=== PATIENT | female | born 1950 | race Caucasian/White ===

== ENCOUNTER 2018-01-15 12:56 | Emergency (ER) | payer OTHER ==
[~2018-01-15] VITALS: Ht 157.5 cm; Wt 100.0 kg
[2018-01-15] MEDS ORDERED: TYLENOL WITH C1 EACH PO (15:45)
[2018-01-15] MEDS ORDERED: VENTOLIN HFA18 GM IH (15:45)
[2018-01-15 15:58] VITALS: BP 117/68
== END 2018-01-15 16:01 | disposition home or self-care (01) ==
LOC: EME 12:56
DX: S80.01XA Contusion of right knee, initial encounter (principal); S20.211A Contusion of right front wall of thorax, initial encounter; V43.52XA Car driver injured in collision with other type car in traffic accident, initial encounter; Y92.410 Unspecified street and highway as the place of occurrence of the external cause; F17.210 Nicotine dependence, cigarettes, uncomplicated
CPT/HCPCS: 71101; 73564; 94640; 99281; 99284